=== PATIENT | female | born 1985 | race Two or more races ===

== ENCOUNTER 2024-01-15 23:19 | Emergency (ER) | payer MEDICAID ==
[~2024-01-15] VITALS: Ht 160 cm; Wt 136.4 kg
[2024-01-15] MEDS: NITROGLYCERIN 0.4 MG SL TAB SL ONE (23:45)
[2024-01-15 23:47] VITALS: RESP 20
[2024-01-15 23:48] LABS: Basophils # (auto) 0 10 ^3/uL (0-0.2); Basophils % (auto) 0.5 % (0.0-2.0); Eosinophils # (auto) 0.3 10 ^3/uL (0-0.8); Hemoglobin 8.4 g/dL (12.2-16.2); Lymphocytes # (auto) 0.7 10 ^3/uL (0.4-5.4); Mean Corpuscular Hemoglobin 16.7 pg (28.0-32.0); Mean Corpuscular Hgb Conc. 29.2 g/dL (32.0-36.0); Monocytes # (auto) 0.5 10 ^3/uL (0-1.3); Neutrophils # (auto) 6.7 10 ^3/uL (1.6-8.6); White Blood Cell 8.2 10^3/uL (4.4-10.8)
[2024-01-15 23:50] LABS: Eosinophils % (auto) 3.5 % (0.0-7.0); Hematocrit 28.7 % (36.0-46.0); Lymphocytes % (auto) 8.2 % (10.0-50.0); Mean Corpuscular Volume 57.2 fL (80.0-100.0); Monocytes % (auto) 6.3 % (0.0-12.0); Neutrophils % (auto) 81.5 % (37.0-80.0); Nucleated Red Blood Cells % 0.3 %; Platelet Count (auto) 349 10^3/uL (140-450); Red Blood Cells 5.02 10^6/uL (4.0-5.20); Red Cell Distribution Width 20.8 % (11.8-14.3)
[2024-01-16] LABS: Alanine Aminotransferase 39 U/L (7-40); Albumin 4.4 g/dL (3.2-4.8); Alkaline Phosphatase 114 U/L (46-116); Anion Gap 12 (5-15); Aspartate Aminotransferase 34 U/L (13-40); BUN/Creatinine Ratio 14.5 (10.0-20.0); Bilirubin, Total 0.3 mg/dL (0.2-1.0); Blood Urea Nitrogen 11 mg/dL (9-23); Carbon Dioxide 21 mmol/L (20-31); Chloride 104 mmol/L (98-107); Glucose 127 mg/dL (74-106); Potassium 3.7 mmol/L (3.5-5.1); Sodium 137 mmol/L (136-145); Total Protein 7.8 g/dL (5.7-8.2)
--- NOTE | 2024-01-16 00:01 | DVH ---
EXAMINATION: AP portable chest radiograph CLINICAL HISTORY: Chest pain COMPARISON: None FINDINGS: Central interstitial prominence. No lobar consolidation identified. No sizable pleural effusion or pn eumothorax. The cardiomediastinal silhouette appears within normal limits given technique. IMPRESSION: Central interstitial prominence is relatively nonspecific but can be seen with edema, reactive airway changes as well as atypical / viral infection. Please correlate clinically.
[2024-01-16 00:02] LABS: INR 1.05 (0.9-1.15); Partial Thromboplastin Time 27.3 SEC (24.5-34.5); Prothrombin Time 11.1 sec (9.3-11.8)
[2024-01-16 00:30] VITALS: BP 104/54; PULSE 97; RESP 18; O2SAT 97
[2024-01-16] MEDS: IBUPROFEN 800 MG TAB PO ONE (00:46)
[2024-01-16 00:54] LABS: Hypochromia Moderate; Platelet Estimate Adequate; Target Cell FEW
[2024-01-16] MEDS: AZITHROMYCIN 250 MG TAB PO ONE (01:15)
[2024-01-16] MEDS ORDERED: AZIT-185 PO (01:20)
[2024-01-16] MEDS ORDERED: NITR0.4S29 SL (01:20)
--- NOTE | 2024-01-16 01:21 | ED.PDOC ---
HPI Comments This patient is a pleasant but severely morbidly obese 38-year-old female who arrives the ED today with complaints of chest pain that began approximately 3 hours prior to arrival and has been relatively consistent. Patient states the pain has been sharp and crushing and located on the left-sided sternal border. Patient denies any history of cardiac concerns. Patient denies any fever nausea or vomiting. Patient does have a history of anemia. Patient was mildly tachycardic at arrival. Chief Complaint: Chest Pain Time Seen by MD: 23:25 Reviewed Notes: Nurses Notes Allergies: Coded Allergies: NO KNOWN ALLERGIES (Unverified , 01/15/24) Information Source: Patient, Spouse Mode of Arrival: Ambulatory Severity: Moderate Timing: Hours Duration: Since onset Prehospital treatment: None Location: Chest (L), Substernal Radiation: No Radiation Quality: Sharp, Squeezing Onset: At Rest Cardiac Risk Factors: Other (Severe morbid obesity) PE Risk Factors: None History of: None Past Medical History PAST MEDICAL HISTORY: Denies Surgical History: Denies all surgeries COMMAND AND CONTROL History: No Pertinent COMMAND AND CONTROL History Family History Family History: Reviewed,noncontributory to illness, No family hx of Cancer, No family hx of DM, No family hx of Heart cristina, No family hx of HTN, No family hx ofKidney cristina, No family hx of Liver cristina, No family hx of Lung cristina, No family hx of Stroke Social History Smoker: Non-Smoker Alcohol: Denies ETOH Use Drugs: Denies Drug Use Lives In: Home Constitutional: denies: chills, diaphoresis, fatigue, fever, malaise, sweats, weakness, others EENTM: denies: blurred vision, double vision, ear bleeding, ear discharge, ear drainage, ear pain, ear ringing, eye pain, eye redness, hearing loss, mouth pain, mouth swelling, nasal discharge, nose bleeding, nose congestion, nose pain, photophobia, tearing, throat pain, throat swelling, voice changes, others Respiratory: denies: cough, hemoptysis, orthopnea, SOB at rest, shortness of breath, SOB with excertion, stridor, wheezing, others Cardiovascular: reports: chest pain; denies: dizzy spells, diaphoresis, Dyspnea on exertion, edema, irregular heart beat, left arm pain, lightheadedness, palpitations, PND, syncope, others Gastrointestinal: denies: abdomen distended, abdominal pain, blood streaked bowels, constipated, diarrhea, dysphagia, difficulty swallowing, hematemesis, melena, nausea, poor appetite, poor fluid intake, rectal bleeding, rectal pain, vomiting, others Genitourinary: denies: abnormal vagina bleeding, burning, dyspareunia, dysuria, flank pain, frequency, hematuria, incontinence, pain, , vagina discharge, urgency, others Neurological: denies: dizziness, fainting, headache, left sided numbness, left sided weakness, numbness, paresthesia, pre-existing deficit, right sided numbness, right sided weakness, seizure, speech problems, tingling, tremors, weakness, others Musculoskeletal: denies: back pain, gout, joint pain, joint swelling, muscle pain, muscle stiffness, neck pain, others Integumetry: denies: bruises, change in color, change in hair/nails, dryness, laceration, lesions, lumps, rash, wounds, others Allergic/Immunocompromised: denies: Difficulty Healing, Frequent Infections, Hives, Itching, others Hematologic/Lymphatic: denies: anemia, blood clots, easy bleeding, easy bruising, swollen glands, others Endocrine: denies: excessive hunger, excessive sweating, excessive thirst, excessive urination, flushing, intolerance to cold, intolerance to heat, unexplained weight gain, unexplained weight loss, others Psychiatric: denies: anxiety, bipolar disorder, depression, hopeless, panic disorder, schizophrenia, sleepless, suicidal, others Physical Exam General Appearance: Moderate Distress (Moderate distress due to chest pain con cerns.), Obese HEENT: Normal ENT Inspection, Pharynx Normal, TMs Normal Neck: Full Range of Motion, Non-Tender, Normal, Normal Inspection Respiratory: No Accessory Muscle Use, No Respiratory Distress, Other (Diffuse left-sided sternal chest pain throughout. No point specific pain. No signs of trauma. No crepitus. Patchy wheezing noted in right middle lobe. 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 Was a procedure done?: No CP Differential Dx Differential Diagnosis: A-fib, Angina, Anxiety / Panic Attack, Atrial Dysrhythmia, AV Block 1st Degree, [place] Differential Diagnosis: CHF Differential Diagnosis: Pneumonia X-Ray, Labs, Meds, VS Vital Signs Date Time Temp Pulse Resp B/P (MAP) Pulse Ox O2 Delivery O2 Flow Rate FiO2 01/16/24 00:46 101.7 01/16/24 00:30 97 18 97 Nasal Cannula* 2 28 01/16/24 00:30 101.7 97 18 104/54 (71) 97 101.7 01/16/24 00:02 105/59 01/16/24 00:01 96 12 105/59 (74) 97 01/15/24 23:47 20 Room Air* 0 21 01/15/24 23:47 98.7 107 20 136/79 (98) 95 98.7 01/15/24 23:45 136/79 01/15/24 23:24 98.7 107 20 136/79 (98) 95 01/15/24 23:23 102 Lab Test 01/16/24 00:21 01/15/24 23:26 Range/Units Troponin I High Sensitivity 17 17 </=34 ng/L White Blood Count 8.2 4.4-10.8 10^3/uL Red Blood Count 5.02 4.0-5.20 10^6/uL Hemoglobin 8.4 L 12.2-16.2 g/dL Hematocrit 28.7 L 36.0-46.0 % Mean Corpuscular Volume 57.2 L 80.0-100.0 fL Mean Corpuscular Hemoglobin 16.7 L 28.0-32.0 pg Mean Corpuscular Hemoglobin Concent 29.2 L 32.0-36.0 g/dL Red Cell Distribution Width 20.8 H 11.8-14.3 % Platelet Count 349 140-450 10^3/uL Mean Platelet Volume 8.9 6.9-10.8 fL Neutrophils (%) (Auto) 81.5 H 37.0-80.0 % Lymphocytes (%) (Auto) 8.2 L 10.0-50.0 % Monocytes (%) (Auto) 6.3 0.0-12.0 % Eosinophils (%) (Auto) 3.5 0.0-7.0 % Basophils (%) (Auto) 0.5 0.0-2.0 % Neutrophils # (Auto) 6.7 1.6-8.6 10 ^3/uL Lymphocytes # (Auto) 0.7 0.4-5.4 10 ^3/uL Monocytes # (Auto) 0.5 0-1.3 10 ^3/uL Eosinophils # (Auto) 0.3 0-0.8 10 ^3/uL Basophils # (Auto) 0 0-0.2 10 ^3/uL Nucleated Red Blood Cells 0.3 % Platelet Estimate Adequate Hypochromasia (manual) Moderate Microcytosis Marked Target Cells Few Prothrombin Time 11.1 9.3-11.8 sec Prothrombin Time INR 1.05 0.9-1.15 Activated Partial Thromboplast Time 27.3 24.5-34.5 SEC Sodium Level 137 136-145 mmol/L Potassium Level 3.7 3.5-5.1 mmol/L Chloride Level 104 98-107 mmol/L Carbon Dioxide Level 21 20-31 mmol/L Anion Gap 12 5-15 Blood Urea Nitrogen 11 9-23 mg/dL Creatinine 0.76 0.550-1.02 mg/dL Glomerular Filtration Rate Calc 102 >90 mL/min BUN/Creatinine Ratio 14.5 10.0-20.0 Serum Glucose 127 H 74-106 mg/dL Calcium Level 9.0 8.7-10.4 mg/dL Total Bilirubin 0.3 0.2-1.0 mg/dL Aspartate Amino Transferase (AST) 34 13-40 U/L Alanine Aminotransferase (ALT) 39 7-40 U/L Alkaline Phosphatase 114 46-116 U/L B-Type Natriuretic Peptide 21.51 0-100 pg/mL Total Protein 7.8 5.7-8.2 g/dL Albumin 4.4 3.2-4.8 g/dL Current Medications Medications (Trade) Dose Ordered Sig/Leydi Route Start Time Stop Time Status Last Admin Nitroglycerin (Ntrostat Sublingual) 0.4 mg ONCE ONCE SL 01/15/24 23:30 01/15/24 23:31 DC 01/15/24 23:45 Ibuprofen (Motrin Tablet) 800 mg ONCE ONCE PO 01/16/24 00:45 01/16/24 00:46 DC 01/16/24 00:46 X-Ray, Labs, Meds, VS Comment All studies performed the ED today were reviewed by me personally. Laboratories were only remarkable for the stated anemia from the patient. EKG of chest revealed sinus tachycardia with a rate of 102. Right axis deviation with borderline T-wave abnormalities, NE interval of 162 and QT interval of 342. Relatively unremarkable EKG. Imaging studies revealed a central interstitial prominence which may represent an atypical infection. Patient responded well to the nitro that was dispensed. I believe the patient had two events concurrently. I think the patient has some angina related to coronary artery concerns and I believe the patient has pneumonia. Patient will be sent home with antibiotics to address her pneumonia concern and nitro to aid her in symptomatic relief. Patient needs to follow up with the primary care provider for a cardiac referral and evaluation. Time of 1ST Reevaluation: :18 Reevaluation 1ST: Improved Consultation: PCP Patient Education/Counseling: Diagnosis, Treatment Family Education/Counseling: Diagnosis, Treatment Departure 1 Departure Time of Disposition: :18 Impression: Primary Impression: Angina pectoris Additional Impression: Pneumonia Disposition: HOME / SELF CARE / HOMELESS Condition: Stable Additional Instructions: Advised patient utilize antibiotics as directed until completion as well as nitroglycerin on an as-needed basis. Patient needs to follow up with her primary care provider for a cardiac referral and evaluation to address what I believe his new onset angina concerns. e-Prescriptions Nitroglycerin (Nitrostat) 0.4 Mg Sub 0.4 MG SL Q12HP PRN, #10 INJ Prov: LARRY DEL VALLE PAC 01/16/24 Azithromycin (ZITHROMAX TABLET) 250 Mg Tb 250 MG PO DAILY for 4 Days, #4 TAB Prov: LARRY DEL VALLE PAC 01/16/24 Discharged With: Self, Spouse Critical Care Note Critical Care Time?: No Stability Stability form required: No Heart Score Heart Score: Heart Score Response (Comments) Value History Slightly Suspicious 0 EKG Repolarization Disturb 1 Age <45 0 Risk Factors 1 or 2 risk factors 1 Troponin Normal limit 0 Total 2 LARRY DEL VALLE PAC Jan 16, 2024 01:21
[2024-01-16 01:30] VITALS: TEMP 100.2
--- NOTE | 2024-01-18 12:27 | ECG ---
[facility] Test Date: 2024-01-15 Test Time: 23:23:55 Pat Name: ARA BAILON Department: ER Room: Gender: F Trainer: TRISHA : 1985 Requested By: OMERO REBOLLEDO Order Number: [id number] Reading MD: Alfredito Drew Measurements Intervals [place] Rate: 102 P: 38 [place]: 162 QRS: 127 QRSD: 97 T: -3 QT: 342 QTc: 446 Interpretive Statements Sinus tachycardia Right axis deviation Borderline T abnormalities, inferior leads Electronically Signed On 01-20-2024 16:09:06 PST by Alfredito Drew Please click the below link to view image of tracing.
== END 2024-01-16 01:32 | disposition home or self-care (01) ==
LOC: ER 23:19
DX: I20.9 Angina pectoris, unspecified (principal); J18.9 Pneumonia, unspecified organism
CPT/HCPCS: 36415; 71045; 84484; 93005